=== PATIENT | male | born 1935 | race Caucasian/White ===

== ENCOUNTER 2019-07-14 | Emergency (ER) | payer MEDICARE, BC ==
[~2019-07-14] MED LIST: AMLODIPINE10 MG PO; AMOXICILLIN500 MG PO; ASPIRIN325 MG OR; CADUET10 MG/40 M OR; CELEBREX200 MG OR; ECONAZOLE1 % EX; FLUARIX QUADRIV1 IN1 IM; FLUARIX QUADRIV1 INJ IM; FLUZONE SPLT1 M1 IM; GRIS-PEG250 MG PO; HYDROCHLOROT25 MG OR; KLOR-CON 1010 MEQ OR; NIASPAN500 MG OR; OMEPRAZOLE20 MG OR; XALATAN 0.005%2.5 ML OP
[2019-07-14] MEDS ORDERED: MULTAQ400 MG PO (21:17)
[2019-07-14] MEDS ORDERED: PRADAXA150 M1 PO (21:18)
[2019-07-14] MEDS ORDERED: METOPROL TAR25 MG PO (21:24)
[2019-07-14 21:25] LABS: HEMATOCRIT 43.7 % (39.0-50.0); HEMOGLOBIN 14.7 g/dl (14.0-18.0); IMMATURE GRANULOCYTES 0.7 % (0.0-5.0); MEAN CELL VOLUME 87.2 fL CALC (80.0-100.0); MEAN CORPUSCULAR HGB 29.3 pG CALC (26.0-32.0); MEAN CORPUSCULAR HGB CONC 33.6 g/dL CAL (32.0-36.0); NEUT# 5.87 thou/uL (1.82-7.42); RED BLOOD COUNT 5.01 mill/uL (4.70-6.10); RED CELL DISTRI WIDTH 14.2 % (11.5-15.5)
[2019-07-14] MEDS ORDERED: TRAMADOL HCL50 MG PO (21:25)
[2019-07-14] MEDS ORDERED: TAMSULOSIN0.4 MG PO (21:26)
[2019-07-14] MEDS ORDERED: FLONASE AL50 MCG/ACT NAB (21:27)
[2019-07-14 21:42] LABS: ALBUMIN 4.2 g/dL (3.2-5.0); ALKALINE PHOSPHATASE 71 u/l (38-126); BILIRUBIN, TOTAL 0.6 mg/dL (0.0-1.4); BUN 15 mg/dL (8-23); BUN/CREATININE RATIO 11 (12-20 (CALC)); CARBON DIOXIDE 32 mmol/l (22-30); CHLORIDE 98 mmol/l (95-108); CREATININE 1.4 mg/dL (0.7-1.3); GFR 48 ML/MIN (>=60 (CALC)); GFR FOR AFR.AMER. 58 ML/MIN (>=60 (CALC)); LIPASE 49 u/l (23-300); SGOT/AST 24 u/l (19-48); TOTAL PROTEIN 7.1 g/dL (6.3-8.2)
[2019-07-14 21:43] LABS: ACT PARTIAL THROMBO TIME 42.2 SECONDS (20.0-32.5); INTERNATIONAL NORMALIZED RATIO 1.1 RATIO (0.7-1.3); PROTHROMBIN TIME 11.9 SECONDS (9.0-12.5)
[2019-07-14 21:50] LABS: ANION GAP 10 (6-22 (CALC)); POTASSIUM 3.9 mmol/l (3.5-5.1); SODIUM 136 mmol/l (137-146)
[2019-07-14] MEDS ORDERED: HYDROCO/APAP1 TA9 PO (22:46)
== END 2019-07-14 23:20 | disposition home or self-care (01) ==
DX: S22.41XA Multiple fractures of ribs, right side, initial encounter for closed fracture (principal); I10 Essential (primary) hypertension; W18.39XA Other fall on same level, initial encounter; Y92.009 Unspecified place in unspecified non-institutional (private) residence as the place of occurrence of the external cause

== ENCOUNTER 2022-01-27 13:45 | Emergency (ER) | payer MEDICARE, BC ==
[~2022-01-27] VITALS: Ht 175.3 cm; Wt 81.6 kg
[~2022-01-27 13:45] MED LIST changes: +FLONASE AL50 MCG/ACT NAB; +HYDROCO/APAP1 TA9 PO; -KLOR-CON 1010 MEQ OR; +KLOR-CON M2020 MEQ PO; +METOPROL TAR25 MG PO; +MULTAQ400 MG PO; +NIACIN SR500 M1 PO; -NIASPAN500 MG OR; +PRADAXA150 M1 PO; +TAMSULOSIN0.4 MG PO; +TRAMADOL HCL50 MG PO
[2022-01-27] MEDS ORDERED: EZETIMIBE10 MG PO (13:58)
[2022-01-27 14:09] VITALS: BP 105/48
[2022-01-27] MEDS ORDERED: TOPROL XL25 M1 PO (14:33)
[2022-01-27] MEDS ORDERED: PRADAXA150 M1 PO (14:36)
[2022-01-27] MEDS ORDERED: K-TABS10 MEQ PO (14:36)
[2022-01-27] MEDS ORDERED: ZETIA10 MG PO (14:36)
[2022-01-27] MEDS ORDERED: CELEBREX200 MG PO (14:36)
[2022-01-27] MEDS ORDERED: HYDROCHLOROT25 MG PO (14:36)
[2022-01-27] MEDS ORDERED: NIACIN TR500 M1 PO (14:36)
[2022-01-27] MEDS ORDERED: OMEPRAZOLE DR20 MG PO (14:36)
[2022-01-27] MEDS ORDERED: TAMSULOSIN0.4 MG PO (14:36)
== END 2022-01-27 14:53 | disposition home or self-care (01) ==
LOC: ED 13:45
DX: Z76.0 Encounter for issue of repeat prescription (principal); I10 Essential (primary) hypertension